=== PATIENT | female | born 1980 | race Caucasian/White ===

== ENCOUNTER 2024-07-07 14:14 | Emergency (ER) | payer OTHER ==
--- OUTSIDE RECORDS SUMMARY | 2024-07-07 14:17 | XMS REPORT | Continuity of Care Document ---
Author Name Unknown Address [address] [place] [address] Organization [facility] Address [address] [place] [address] Care Team Providers Care Physician Recruiter Name Role Phone Hilton Farah Attending Clinician Unavailable DR ANGEL NICHOLSON Attending Clinician Unavailable DR ANGEL NICHOLSON Attending Clinician Unavailable DR ANGEL NICHOLSON Admitting Clinician Unavailable Iveth Smith Admitting Clinician Radha vailable Payers Payer Name Policy Type Policy Number Effective Date Expirati on Date Source [id number] 1958 00:00:00 [id number] 1958 00:00:00 Problems Condition Name Condition Details Condition Category Status Onset Date Resolution Date Last Treatment Date Treating Clinician Comments Source Foot pain Foot pain Disease Active 11-12 00:00: 00 [facility] Allergies, Adverse Reactions, Alerts Allergy Name Allergy Type Status Severity Reaction(s) Onset Date Inactive Date Treating Clinician Comments Source No Known Allergie s DA Active U 07-02 00:00: 00 [facility] No Active Allergie s Propensi ty to adverse reaction s to drug Active 11-24 00:00: 00 [facility] No Known Contrast Allergie s DA Active U 01-16 00:00: 00 [facility] No Known Drug Allergie s DA Active U 01-16 00:00: 00 [facility] No Known Food Allergie s DA Active U 01-16 00:00: 00 [facility] No Known Other Allergie s DA Active U 01-16 00:00: 00 [facility] No Known Drug Intolera nces DA Active U 05-14 00:00: 00 [facility] No Known Drug Allergie s DA Active [facility] Family History Family Member Diagnosis Comments Start Date Stop Date Sourc e Natural mother Diabetes [place] [facility] Social History Social Habit Start Date Stop Date Quantity Comments Source Sexual orientation H [facility] History of tobacco use Cigarette Smoker [facility] Alcoholic beverage intake 2021-08-18 00:00:00 2021-08-18 00:00:00 Current non-drinker of alcohol (finding) [facility] History of Social function 2021-08-18 00:00:00 2021-08-18 00:00:00 [facility] Tobacco use and exposure 2013-11-24 00:00:00 2013-11-24 00:00:00 Smokeless tobacco non-user [facility] Sex assigned at 1980 00:00:00 1980 00:00:00 [facility] Smoking Status Start Date Stop Date Source Smokes tobacco daily 2013-11-24 00:00:00 [facility] Medications Ordered Medication Name Filled Medication Name Start Date Stop Date Current Medication? Ordering Clinician Indication Dosage Frequency Signature (SIG) Comments Components Source ibuprofen (MOTRIN) 800 mg tablet 11-13 00:00: 00 Yes Foot pain 800mg Take 1 tablet by mouth every 8 hours as needed for Pain. [facility] HYDROcodone -acetaminop hen (VICODIN) 5-500 mg per tablet 2009-04 00:00: 00 Yes Boil 1{tbl} Take 1 Tab by mouth every 6 hours as needed for Pain for 10 doses. [facility] Immunizations Ordered Immunization Name Filled Immunization Name Date Status Comments Source Pfizer COVID-19 Vaccine Pfizer COVID-19 Vaccine 2020-12-14 00:00:00 Completed Pfizer COVID-19 Vaccine Pfizer COVID-19 Vaccine 2020-11-23 00:00:00 Completed Encounters Start Date/Time End Date/Time Encounter Type Admission Type Attending Clinicians Care Facility Care Department Encounter ID Source 2023-07-27 16:59:00 Inpatient Emy [facility] [id number] [facility] 2024-07-02 15:29:00 2024-07-02 18:02:00 Emergency EM Hilton Farah [facility] [id number] [facility] 2024 13:21:23 2024 13:21:23 Outpatient SFA [facility] [id number] Wilfrido Foreman 2023-07-27 16:59:00 2023-07-27 18:08:00 Outpatient ANGEL GENAO [facility] [id number] [facility] 2020-12-14 00:00:00 2020-12-14 00:00:00 Outpatient [facility] [id number] [facility] 2020-11-23 00:00:00 2020-11-23 00:00:00 Outpatient [facility] [id number] [facility] Results Test Description Test Time Test Comments Results Result Co mments Source XR CHEST 1 VIEW *OW* 2023-07-27 17:59:[facility] 1980 Sex: F *EXAMINATION:XR CHEST 1 VIEW *OW*CLINICAL INDICATION:Female, 43 years year old with COUGH, UNSPECIFIED;CoughCOM PARISON: None.FINDINGS:Single view(s) of the chest submitted.Support Devices: None.Heart: Cardiac silhouette is normal in size.Mediastinum: Mediastinal contours are within normal limits for age.Lungs: The lungs are hyperinflated. There is no focal consolidation or significant congestive change. Pleura: No pleural effusion is identified. Limited assessment for pneumothorax due to technical limitations.Bones: No acute osseous abnormality. IMPRESSION:Pulmonary hyperinflation. No focal consolidation or significant congestive change.Electronicall y signed by: Korin Rodriges MD 07/27/2023 05:59 PM CDT TSH, THIRD [id number] 06:56:23* Test Item Value Reference Range Interpretation Comme nts TSH, THIRD GENERATION (test code = 2821) 2.250 UIU/ML 0.400-4.100 CBC W/AUTO DIFF WITH [id number] 06:19:16* Test Item Value Reference Range Interpretation Comme nts WBC (test code = 1001) 9.4 K/UL 3.5-11.0 RBC (test code = 1002) 4.48 M/UL 3.80-5.40 HEMOGLOBIN (test code = 1003) 13.5 G/DL 11.5-15.5 HEMATOCRIT (test code = 1004) 38.4 % 34.0-45.0 MCV (test code = 1005) 85.7 fL 80.0-99.0 MCH (test code = 1006) 30.1 PG 25.0-33.0 MCHC (test code = 1007) 35.2 G/DL 31.0-36.0 RDW (test code = 1038) 12.3 % 11.5-15.0 NEUTROPHILS (test code = 1008) 61.4 % LYMPHOCYTES (test code = 1010) 24.6 % MONOCYTES (test code = 1011) 6.9 % EOSINOPHILS (test code = 1012) 6.3 % BASOPHILS (test code = 1013) 0.6 % IMMATURE GRANULOCYTES (test code = 1036) 0.2 % NUCLEATED RBCS (test code = 1065) 0.0 /100 WBC'S See_Comment [Automated Rohati Systemsa ge] The system which generated this result transmitted reference range: 0.0. The reference range was not used to interpret this result as normal/abnormal. PLATELET COUNT (test code = 1015) 307 K/UL 130-400 ABSOLUTE NEUTROPHILS (test code = 1066) 5.75 K/UL 1.50-7.50 ABSOLUTE LYMPHOCYTES (test code = 1067) 2.31 K/UL 1.00-4.00 ABSOLUTE MONOCYTES (test code = 1068) 0.65 K/UL 0.20-1.00 ABSOLUTE EOSINOPHILS (test code = 1040) 0.59 K/UL 0.00-0.50 H ABSOLUTE BASOPHILS (test code = 1069) 0.06 K/UL 0.00-0.20 ABS IMMATURE GRANULOCYTES (test code = 1020) 0.02 K/UL 0.00-0.10 ABS NUCLEATED RBCS (test code = 74490) 0.00 K/UL 0.00-0.11 COMPREHENSIVE METABOLIC [id number] 05:52:52* Test Item Value Reference Range Interpretation Comme nts GLUCOSE (test code = 2217) 101 MG/DL 70-99 H BUN (test code = 2207) 14 MG/DL 6-20 CREATININE (test code = 2214) 0.82 MG/DL 0.60-1.30 eGFR (2020 CKD-EPI) (test code = 00329) 93 ML/MIN/1.73 >60 CALC BUN/CREAT (test code = 2235) 17 RATIO 6-28 SODIUM (test code = 223) 141 MEQ/L 133-146 POTASSIUM (test code = 2228) 4.3 MEQ/L 3.5-5.4 CHLORIDE (test code = 2215) 104 MEQ/L 95-107 CARBON DIOXIDE (test code = 2206) 25 MEQ/L 19-31 CALCIUM (test code = 2209) 9.2 MG/DL 8.5-10.5 PROTEIN, TOTAL (test code = 222) 6.6 G/DL 6.1-8.3 ALBUMIN (test code = 2201) 4.4 G/DL 3.5-5.2 CALC GLOBULIN (test code = 2240) 2.2 G/DL 1.9-3.7 CALC A/G RATIO (test code = 2234) 2.0 RATIO 1.0-2.6 BILIRUBIN, TOTAL (test code = 220) 0.3 MG/DL See_Comment [Automated me ssage] The system which generated this result transmitted reference range: <=1.2. The reference range was not used to interpret this result as normal/abnormal. ALKALINE PHOSPHATASE (test code = 4) 58 U/L 40-112 AST (test code = 2218) 15 U/L 9-40 ALT (test code = 2219) 17 U/L 5-40 LIPID [id number] 05:52:52* Test Item Value Reference Range Interpretation Comme nts CHOLESTEROL (test code = 2210) 168 MG/DL <200 TRIGLYCERIDES (test code = 2232) 101 MG/DL <150 HDL CHOLESTEROL (test code = 2220) 49 MG/DL >39 CALC LDL CHOL (test code = 2237) 100 MG/DL <100 H NOTE: CALCULATED LDL IS BASED ON SIDDHARTH-SELLERS METHOD WHICHINCLUDES ADJUSTABLE TRIGLYCERIDE:VLDL CHOLESTEROL RATIO.THIS FACTOR VARIES BY MEASURED TRIGLYCERIDE AND NON-HDLCHOLESTEROL CONCENTRATIONS WITH INCREASED CALCULATED LDL SEENIN HIGHER TRIGLYCERIDE OR LOWER NON-HDL SPECIMENS. FOR MOREINFORMATION, SEE CLIENT ANNOUNCEMENT AT [email or web address] [email or web address] RATIO LDL/HDL (test code = 2238) 2.04 RATIO <3.22 UNLESS OTHERW ISE INDICATED, ALL TESTING PERFORMED [facility] [employer] [address] [place] [address] PLANT OPERATOR/SHIFT SUPERVISOR: AIME PARISH M.D. CLIA NUMBER [id number] [facility] [place]. [id number] Notes Date/Time Note Provider Source 2024-07-02 16:35:00 [facility] ([facility] EMERGENCY PROVIDER REPORT REPORT#:[id number] REPORT STATUS: Signed DATE:07/02/24 TIME: 1635 PATIENT: MICHAEL DAS UNIT #: [id number] ROOM/BED: : 81 AGE: 44 SEX: F PCP PHYS: Iveth Smith MD SERVICE AUTHOR: Hilton Farah MD REP SRV REP SRV TM: 1635 * ALL edits or amendments must be made on the electronic/computer document * HPI-General Illness General Initial Greet Date/Time 07/02/24 1532 Presentation Chief Complaint High blood pressure Hx Obtained From Patient Sudden in Onset? No Onset Occurred Today Symptom Duration Waxes and wanes Progression since Onset Waxes and wanes Pain/Sev: Onset Mild Pain/Sev: Current Mild Exacerbated by Nothing Relieved by Nothing Review of Systems ROS Statements All systems rev neg except as marked. Review of Systems Constitutional Denies: Fever, Malaise. Respiratory Denies: Hemoptysis, Parox nocturnal dyspnea. Past Medical History - Adult Stated Complaint HTN Allergies Coded Allergies: No Known Allergies (07/02/24) Pt reports no significant: Past medical history, Past surgical history Smoking status for patients 13 years old or older: Current some day smoker Physical Exam Vital Signs Vital Signs First Documented: Result Date Time Pulse Ox 98 07/02 1529 B/P 175/119 07/02 1529 O2 Delivery Room air 07/02 1529 Temp 36.8 07/02 1529 Pulse 78 07/02 1529 Resp 18 07/02 1529 B/P Mean 150 07/02 1639 Last Documented: Result Date Time Pulse Ox 99 07/02 1700 B/P 168/97 07/02 1700 B/P Mean 127 07/02 1700 Pulse 61 07/02 1700 O2 Delivery Room air 07/02 1529 Temp 36.8 07/02 1529 Resp 18 07/02 1529 Review of Vital Signs Reviewed Basic Physical Exam Basic PE GEN: Well appearing/NAD, HEAD: Atraumatic/NC, EYES: PERRL, conj clear, ENT: Membranes moist, NECK: Supple, RESP: No resp distress, CV: Reg rate rhythm, ABD: Soft/non-tender, EXT: No gross abnormality, SKIN: No rashes, warm/ dry, NEURO: alert oriented, NEURO: gross movement NL, PSYCH: NL thought content Re-Evaluation MDM ED Course Medication(s) Ordered Medication(s) Ordered: Cardiovascular Drugs Sig/Tamanna Start time Last Medication Dose Route Stop Time Status Admin Clonidine HCl 0.2 MG X1ED STA 07/02 1550 DC 07/02 PO 07/02 1551 1640 Patient Discharge Departure Vital Signs/Condition Vital Signs First Documented: Result Date Time Pulse Ox 98 07/02 1529 B/P 175/119 07/02 1529 O2 Delivery Room air 07/02 1529 Temp 36.8 07/02 1529 Pulse 78 07/02 1529 Resp 18 07/02 1529 B/P Mean 150 07/02 1639 Last Documented: Result Date Time Pulse Ox 99 07/02 1700 B/P 168/97 07/02 1700 B/P Mean 127 07/02 1700 Pulse 61 03/13 1700 O2 Delivery Room air 07/02 1529 Temp 36.8 07/02 1529 Resp 18 07/02 1529 All vital signs available at the time of this entry have been reviewed. Clinical Impression Clinical Impression Primary Impression: Uncontrolled hypertension Disposition Decision Discharge )( Discharged to Home Yes )( Time 1636 )( Date 07/02/24 Discharge/Care Plan (Auto) Prescriptions Current Visit Scripts LISINOPRIL (ZESTRIL) 10 MG PO DAILY LISINOPRIL (ZESTRIL) 10 MG PO DAILY #30 TABS LISINOPRIL (ZESTRIL) 10 MG PO DAILY LISINOPRIL (ZESTRIL) 10 MG PO DAILY #30 TABS Patient Instructions ED Hypertension, Established Referrals Provider Referral: Joseph Tillman MD Address: [address] [place] [address] at 1754 RPT #:[id number] END OF REPORT [facility]
--- NOTE | 2024-07-07 15:20 | RAD REPORT ---
EXAM: CT brain without contrast HISTORY: DIZZINESS COMPARISON: None TECHNIQUE: Multiple contiguous axial images were obtained and a CT of the brain without contrast. Sag ittal and coronal reformats were performed. One or more of the following dose reduction techniques were used: Automated exposure control, adjust ment of the mA and/or kV according to patient size, and/or iterative reconstruction. FINDINGS: No evidence of hydrocephalus, intracranial hemorrhage, or extra-axial fluid collection. The brain is normal in morphology. No evidence of midline shift or areas of brain edema. The calvarium is intact. The visualized paranasal sinuses and mastoid air cells are essentially clear . IMPRESSION: No evidence of acute intracranial abnormality.
[2024-07-07] MEDS ORDERED: cloNIDine HCL 0.1 MG TAB ONE (15:34)
[2024-07-07 16:18] LABS: Absolute Basophils 0.1 K/uL (0-0.5); Absolute Eosinophils 0.4 K/uL (0-0.5); Absolute Monocytes 0.6 K/uL (0.1-1.3); Absolute Neutrophil 6.2 K/uL (1.8-8.0); Eosinophils % 3.8 % (0-4.4); Hematocrit 43.2 % (36.0-45.0); Hemoglobin 14.7 g/dL (12.0-15.0); Lymphocytes % 21.9 % (15.3-44.8); MCH 28.9 pg (27.0-35.0); MCHC 33.9 g/dL (32.0-36.0); MCV 85.1 fL (80-100); MPV 7.3 fL (7.6-11.3); Monocytes % 6.7 % (3.3-12.3); Neutrophils % 66.6 % (41.7-73.7); Nucleated Red Blood Cells % 0.1 % (0-0); Platelets 362 thou/uL (152-406); RBC Red Blood Cell Count 5.08 M/uL (3.86-4.86); Red Cell Distribution Width 14.2 % (12.1-15.2)
[2024-07-07 16:35] LABS: Anion Gap 7.8 mEq/L (5.0-15.0); Potassium 3.8 mEq/L (3.5-5.1); Troponin High Sensitivity 10.4 pg/mL (<58.9)
--- NOTE | 2024-07-07 17:00 | RAD REPORT ---
EXAMINATION: ONE VIEW CHEST XR CLINICAL INDICATION: CHEST PAIN TECHNIQUE: Frontal chest projection is submitted. Examination is limited by patient positioning and t echnique. COMPARISON: No prior exam. FINDINGS: The lungs are well inflated and clear. The heart is upper limit of normal in size. No displaced fract ures identified. IMPRESSION: No acute intrathoracic abnormalities.
--- NOTE | 2024-07-07 17:14 | EDPHYS ---
Physician Documentation [facility] Name: Elizabeth Menendez Age: 44 yrs Sex: Female : 1980 Arrival Date: 07/07/2024 Time: 14:14 Bed 16 Private MD: ED Physician Miquel Osborne HPI: 07/07 15:04 This 44 yrs old Female presents to ER via Ambulatory with complaints of High Blood sb4 Pressure. 15:04 Blood pressure has been running high for about 2 weeks now. Was put on 10 mg of sb4 lisinopril daily, but states is not helping. Blood pressure has been consistently running 150+ systolic and 100+ diastolic. She reports dizziness and headache. States that she is currently residing at [facility] for drug rehabilitation. States that if her blood pressure is not under control, they will have to medically discharge her. She states that she is complaining of some chest pain and shortness of breath currently, but also just had an argument with her . Historical: - Allergies: 15:00 No Known Allergies; iw - Home Meds: 15:00 lisinopril 10 mg Oral tablet daily [Active]; iw - PMHx: 15:00 Hypertensive disorder; iw - Immunization history:: Adult Immunizations up to date. - Infectious Disease History:: Denies. - Social history:: Smoking status: unknown. ROS: 15:04 Constitutional: Negative for fever, chills, and weight loss, sb4 15:04 Cardiovascular: Positive for chest pain, 15:04 Respiratory: Positive for shortness of breath, 15:04 Neuro: Positive for dizziness, headache, 15:04 All other systems are negative, Exam: 15:05 Head/Face: Normocephalic, atraumatic. Eyes: Extra-ocular motions intact. Periorbital sb4 areas with no swelling, redness, or edema. ENT: Mucous membranes moist. Respiratory: No increased work of breathing, no retractions or nasal flaring. Abdomen/GI: Soft, non-tender, no distension. 15:05 Constitutional: The patient appears alert, awake, anxious, Crying 15:05 Cardiovascular: Rate: tachycardic, Rhythm: regular, 15:05 Skin: Appearance: flushing, noted on the face and chest, Vital Signs: 14:59 BP 194 / 100; Pulse 100; Resp 19; Temp 98.7; Pulse Ox 100% on R/A; iw 16:10 BP 153 / 107; Pulse 65; Resp 16 S; Pulse Ox 100% on R/A; kc6 16:57 BP 139 / 95; Pulse 59; Resp 18 S; Pulse Ox 99% on R/A; kc6 MDM: 14:44 Medical Screening Exam initiated sb4 17:12 Data reviewed: vital signs, nurses notes, lab test result(s), EKG, radiologic studies, sb4 and as a result, I will discharge patient. Counseling: I had a detailed discussion with the patient and/or guardian regarding the historical points, exam findings, and any diagnostic results supporting the discharge/admit diagnosis, the presence of at least one elevated blood pressure reading (>120/80) during this emergency department visit, lab results, radiology results, the need for outpatient follow up, for definitive care, to return to the emergency department if symptoms worsen or persist or if there are any questions or concerns that arise at home. 07/07 15:02 Order name: Basic Metabolic Panel; Complete Time: 16:38 sb4 07/07 15:02 Order name: CBC with Diff; Complete Time: 16:23 sb4 07/07 15:02 Order name: Troponin HS; Complete Time: 16:38 sb4 07/07 15:02 Order name: XRAY Chest (1 view); Complete Time: 17:04 sb4 07/07 15:03 Order name: Head Brain Wo Cont CT; Complete Time: 15:23 sb4 07/07 15:02 Order name: EKG; Complete Time: 15:03 sb4 07/07 15:02 Order name: Cardiac monitoring; Complete Time: 15:59 sb4 07/07 15:02 Order name: EKG - Nurse/Tech; Complete Time: 15:59 sb4 07/07 15:02 Order name: IV Saline Lock; Complete Time: 16:10 sb4 07/07 15:02 Order name: Labs collected and sent; Complete Time: 16:10 sb4 07/07 15:02 Order name: O2 Per Protocol; Complete Time: 15:16 sb4 07/07 15:02 Order name: O2 Sat Monitoring; Complete Time: 15:16 sb4 EC:15 Rate is 58 beats/min. Rhythm is regular, Sinus bradycardia. KS interval is normal at sb4 156 msec. QRS interval is normal at 92 msec. QT interval is normal at 438 msec. No Q waves. T waves are Normal. No ST changes noted. Clinical impression: Sinus bradycardia. Interpreted by me. Reviewed by me. Administered Medications: 15:59 Drug: cloNIDine PO 0.2 mg PO once Route: PO; kc6 16:58 Follow up: Response: No adverse reaction; Blood pressure is lowered kc6 Disposition: 18:55 I was immediately available on-site in the Emergency Department for consultation in the ms3 care of the patient. Disposition Summary: 07/07/24 17:13 Discharge Ordered Notes: Location: Home sb4 Problem: new sb4 Symptoms: have improved sb4 Condition: Stable sb4 Diagnosis - Essential (primary) hypertension sb4 Followup: sb4 - With: Emergency Department - When: As needed - Reason: If symptoms return, Worsening of condition Discharge Instructions: - Discharge Summary Sheet sb4 - Hypertension, Adult, [id number]-rk-[id number] sb4 Forms: - Patient Portal Instructions sb4 - Leadership Thank You Letter sb4 Prescriptions: - amlodipine 5 mg Oral tablet - take 1 tablet ORAL route daily; 30 tablet; Refills: 0, Product Selection sb4 Permitted Signatures: Dispatcher [employer] Roxanne Gomez RN RN iw Miquel Osborne DO DO ms3 Christina Perez RN RN kc6 Phoebe Connor PA-C PA-C sb4 Corrections: (The following items were deleted from the chart) 15:03 15:03 Head Brain Wo Cont+CT.RAD.BRZ ordered. EDMS EDMS
--- NOTE | 2024-07-07 17:14 | ER ---
Nurse's Notes [facility] Name: Elizabeth Menendez Age: 44 yrs Sex: Female : 1980 Arrival Date: 07/07/2024 Time: 14:14 Bed 16 Private MD: Diagnosis: Essential (primary) hypertension Presentation: 07/07 14:59 Chief complaint: Patient states: my BP is high, they put me on lisinopril last Saturday. iw Coronavirus screen: At this time, the client does not indicate any symptoms associated with coronavirus-19. Ebola Screen: No symptoms or risks identified at this time. Initial Sepsis Screen: Does the patient meet any 2 criteria? No. Patient's initial sepsis screen is negative. Does the patient have a suspected source of infection? No. Patient's initial sepsis screen is negative. Risk Assessment: Do you want to hurt yourself or someone else? Patient reports no desire to harm self or others. Onset of symptoms was June 30, 2024. 14:59 Method Of Arrival: Ambulatory iw 14:59 Acuity: ARANZA 3 iw Historical: - Allergies: 15:00 No Known Allergies; iw - Home Meds: 15:00 lisinopril 10 mg Oral tablet daily [Active]; iw - PMHx: 15:00 Hypertensive disorder; iw - Immunization history:: Adult Immunizations up to date. - Infectious Disease History:: Denies. - Social history:: Smoking status: unknown. Screenin:15 [facility] ED Fall Risk Assessment (Adult) History of falling in the last 3 months, kc6 including since admission No falls in past 3 months (0 pts) Confusion or Disorientation No (0 pts) Intoxicated or Sedated No (0 pts) Impaired Gait No (0 pts) Mobility Assist Device Used No (0 pt) Altered Elimination No (0 pt) Score/Fall Risk Level 0 - 2 = Low Risk Oriented to surroundings, Maintained a safe environment, Educated pt \T\ family on fall prevention, incl call for assistance when getting out of bed. 16:16 Abuse screen: Denies threats or abuse. Denies injuries from another. Nutritional kc6 screening: No deficits noted. Tuberculosis screening: No symptoms or risk factors identified. Assessment: 16:15 General: Appears in no apparent distress. comfortable, well groomed, well developed, kc6 Behavior is cooperative, anxious, crying. Pain: Complains of pain in chest Quality of pain is described as dull, throbbing. Neuro: Level of Consciousness is awake, alert, obeys commands, Oriented to person, place, time, situation, Appropriate for age Reports blurred vision headache. Cardiovascular: Capillary refill < 3 seconds. Respiratory: Airway is patent Trachea midline Respiratory effort is even, unlabored, Respiratory pattern is regular, symmetrical. GI: Reports nausea, Patient currently denies abdominal pain, diarrhea, vomiting. : No signs and/or symptoms were reported regarding the genitourinary system. EENT: No signs and/or symptoms were reported regarding the EENT system. Derm: No signs and/or symptoms reported regarding the dermatologic system. Skin is intact, is healthy with good turgor, Skin is pink, warm \T\ dry. Musculoskeletal: No signs and/or symptoms reported regarding the musculoskeletal system. Circulation, motion, and sensation intact. Range of motion: intact in all extremities. Vital Signs: 14:59 BP 194 / 100; Pulse 100; Resp 19; Temp 98.7; Pulse Ox 100% on R/A; iw 16:10 BP 153 / 107; Pulse 65; Resp 16 S; Pulse Ox 100% on R/A; kc6 16:57 BP 139 / 95; Pulse 59; Resp 18 S; Pulse Ox 99% on R/A; kc6 ED Course: 14:18 Patient arrived in ED. cj3 14:42 Phoebe Connor PA-C is PHCP. sb4 14:42 Miquel Osborne DO is Attending Physician. sb4 15:00 Triage completed. iw 15:14 Head Brain Wo Cont CT In Process Unspecified. EDMS 15:15 Christina Perez, RN is Primary Nurse. kc6 16:10 Missed attempt(s): 22 gauge in right wrist. Inserted saline lock: 22 gauge in left [facility] antecubital area, using aseptic technique. Blood collected. Flushed with 10 mL NS. 16:15 Patient maintains SpO2 saturation greater than 95% on room air. kc6 16:15 Patient has correct armband on for positive identification. Bed in low position. Call [facility] light in reach. Side rails up X 1. monitoring engineer on. Pulse ox on. NIBP on. Door closed. Noise minimized. Lights dimmed. Warm blanket given. Pillow given. Verbal reassurance given. 16:17 Arm band placed on. kc6 16:53 XRAY Chest (1 view) In Process Unspecified. EDMS 17:45 No provider procedures requiring assistance completed. IV discontinued, intact, kc6 bleeding controlled, No redness/swelling at site. Pressure dressing applied. Administered Medications: 15:59 Drug: cloNIDine PO 0.2 mg PO once Route: PO; kc6 16:58 Follow up: Response: No adverse reaction; Blood pressure is lowered kc6 Medication: 17:46 VIS not applicable for this client. kc6 Outcome: 17:13 Discharge ordered by MD. nevarez 17:45 Patient left the ED. kc6 17:46 Discharged to Rehab Facility kc6 17:46 Condition: improved 17:46 Discharge instructions given to patient, Instructed on discharge instructions, follow up and referral plans. medication usage, Demonstrated understanding of instructions, follow-up care, medications, Prescriptions given X 1, Signatures: Dispatcher [employer] Roxanne Gomez, RN Christina Boyd RN RN kc6 Phoebe Connor, PA-C PA-C Tahira Gee cj3
[2024-07-07 23:08] VITALS: TEMP 98.7
[2024-07-07 23:18] VITALS: BP 139/95; O2SAT 99
--- NOTE | 2024-07-08 12:29 | EKG ---
Test Date: 2024-07-07 Test Time: 15:45:39 Principal Examiner: HOWARD MEASUREMENT RESULTS: Intervals: Rate: 58 AL: 156 QRSD: 92 QT: 438 QTc: 429 Lucas: P: 75 AL: 156 QRS: 86 T: 67 INTERPRETIVE STATEMENTS: Sinus bradycardia Possible Anterior infarct, age undetermined Abnormal ECG No previous ECG available for comparison Electronically Signed On 07-08-24 12:25:36 CDT by Isaiah Sparks
== END 2024-07-07 17:45 | disposition home or self-care (01) ==
LOC: ER 14:14
DX: I10 Essential (primary) hypertension (principal); R51.9 Headache, unspecified
CPT/HCPCS: 36415; 70450; 71045; 80048; 84484; 85025; 93005

== ENCOUNTER 2024-07-10 19:11 | Emergency (ER) | payer OTHER ==
--- OUTSIDE RECORDS SUMMARY | 2024-07-10 19:14 | XMS REPORT | Continuity of Care Document ---
Author Name Unknown Address [address] [place] [address] [facility] Address [address] [place] [address] Care Team Providers Care Dietitian Consultant Name Role Phone Hilton Farah Attending Clinician Unavailable DR ANGEL NICHOLSON Attending Clinician Unavailable DR ANGEL NICHOLSON Attending Clinician Unavailable DR ANGEL NICHOLSON Admitting Clinician Unavailable Iveth Smith Admitting Clinician Radha vailable Payers Payer Name Policy Type Policy Number Effective Date Expirati on Date Source [id number] 1958 00:00:00 [id number] 1958 00:00:00 Problems Condition Name Condition Details Condition Category Status Onset Date Resolution Date Last Treatment Date Treating Clinician Comments Source Foot pain Foot pain Disease Active 11-12 00:00: 00 [facility] Allergies, Adverse Reactions, Alerts Allergy Name Allergy Type Status Severity Reaction(s) Onset Date Inactive Date Treating Clinician Comments Source No Known Allergie s DA Active U 07-02 00:00: 00 [facility] No Active Allergie s Propensi ty to adverse reaction s to drug Active 11-24 00:00: 00 [facility] No Known Contrast Allergie s DA Active U 01-16 00:00: 00 [facility] No Known Drug Allergie s DA Active U 01-16 00:00: 00 [facility] No Known Food Allergie s DA Active U 01-16 00:00: 00 [facility] No Known Other Allergie s DA Active U 01-16 00:00: 00 [facility] No Known Drug Intolera nces DA Active U 05-14 00:00: 00 [facility] No Known Drug Allergie s DA Active [facility] Family History Family Member Diagnosis Comments Start Date Stop Date Sourc e Natural mother [facility] Social History Social Habit Start Date Stop Date Quantity Comments Source Sexual orientation [facility] History of tobacco use Cigarette Smoker [facility] Alcoholic beverage intake 2021-08-18 00:00:00 2021-08-18 00:00:00 Current non-drinker of alcohol (finding) [facility] History of Social function 2021-08-18 00:00:00 2021-08-18 00:00:00 [facility] Tobacco use and exposure 2013-11-24 00:00:00 2013-11-24 00:00:00 Smokeless tobacco non-user [facility] Sex assigned at 1980 00:00:00 1980 00:00:00 [facility] Smoking Status Start Date Stop Date Source Smokes tobacco daily 2013-11-24 00:00:00 [facility] Medications Ordered Medication Name Filled Medication Name Start Date Stop Date Current Medication? Ordering Clinician Indication Dosage Frequency Signature (SIG) Comments Components Source ibuprofen (MOTRIN) 800 mg tablet 11-13 00:00: 00 Yes Foot pain 800mg Take 1 tablet by mouth every 8 hours as needed for Pain. [facility] HYDROcodone -acetaminop hen (VICODIN) 5-500 mg per tablet 2009-04 00:00: 00 Yes Boil 1{tbl} Take 1 Tab by mouth every 6 hours as needed for Pain for 10 doses. [facility] Immunizations Ordered Immunization Name Filled Immunization Name Date Status Comments Source Pfizer COVID-19 Vaccine Pfizer COVID-19 Vaccine 2020-12-14 00:00:00 Completed Pfizer COVID-19 Vaccine Pfizer COVID-19 Vaccine 2020-11-23 00:00:00 Completed Encounters Start Date/Time End Date/Time Encounter Type Admission Type Attending Clinicians Care Facility Care Department Encounter ID Source 2023-07-27 16:59:00 Inpatient [facility] [id number] [facility] 2024-07-02 15:29:00 2024-07-02 18:02:00 Emergency EM Hilton Farha [facility] [id number] [facility] 2024 13:21:23 2024 13:21:23 Outpatient S[facility] [id number] Wilfrido Foreman 2023-07-27 16:59:00 2023-07-27 18:08:00 Outpatient ANGEL GENAO [facility] [id number] [facility] 2020-12-14 00:00:00 2020-12-14 00:00:00 Outpatient [facility] [id number] [facility] 2020-11-23 00:00:00 2020-11-23 00:00:00 Outpatient [facility] [id number] [facility] Results Test Description Test Time Test Comments Results Result Co mments Source XR CHEST 1 VIEW *OW* [facility]23-[facility]27 [facility] 1980 Sex: F *EXAMINATION:XR [...] MD 07/27/2023 05:59 PM CDT TSH, THIRD [id number] 06:56:23* Test Item Value Reference Range Interpretation Comme nts TSH, THIRD GENERATION (test code = 2821) 2.250 UIU/ML 0.400-4.100 CBC W/AUTO DIFF WITH [id number] 06:19:16* Test Item Value Reference Range Interpretation [...] = 1065) 0.0 /100 WBC'S See_Comment [Automated Next Glass[employer] ge] The system which generated this result [...] 0.00-0.10 ABS NUCLEATED RBCS (test code = 69777) 0.00 K/UL 0.00-0.11 COMPREHENSIVE METABOLIC [id number] 05:52:52* Test Item Value Reference Range Interpretation Comme nts GLUCOSE (test code = 221) 101 MG/DL 70-99 H BUN (test code = 2207) 14 MG/DL 6-20 CREATININE (test code = 2214) 0.82 MG/DL 0.60-1.30 eGFR (2020 CKD-EPI) (test code = 78574) 93 ML/MIN/1.73 >60 CALC BUN/CREAT (test code = 2235) 17 RATIO 6-28 SODIUM (test code = 223) 141 MEQ/L 133-146 POTASSIUM (test code = 2228) 4.3 MEQ/L 3.5-5.4 CHLORIDE (test code = 2215) 104 MEQ/L 95-107 CARBON DIOXIDE (test code = 2206) 25 MEQ/L 19-31 CALCIUM (test code = 2209) 9.2 MG/DL 8.5-10.5 PROTEIN, TOTAL (test code = 2228) 6.6 G/DL 6.1-8.3 ALBUMIN (test code = 220) 4.4 G/DL 3.5-5.2 CALC GLOBULIN (test code = 2240) 2.2 G/DL 1.9-3.7 CALC A/G RATIO (test code = 2234) 2.0 RATIO 1.0-2.6 BILIRUBIN, TOTAL (test code = 2206) 0.3 MG/DL See_Comment [Automated me ssage] The system which generated this result transmitted reference range: <=1.2. The reference range was not used to interpret this result as normal/abnormal. ALKALINE PHOSPHATASE (test code = 2203) 58 U/L 40-112 AST (test code = 2218) 15 U/L 9-40 ALT (test code = 2219) 17 U/L 5-40 LIPID [id number] 05:52:52* Test Item Value Reference Range Interpretation [...] SPECIMENS. FOR MOREINFORMATION, SEE CLIENT ANNOUNCEMENT AT [email or web address] RISK RATIO LDL/HDL (test code = 2238) 2.04 RATIO <3.22 UNLESS OTHERW ISE INDICATED, ALL TESTING PERFORMED ATCLINICAL PATHOLOGY [employer] [address] [place] [address] LOIN TRIMMER: AIME PARISH M.D. CLIA NUMBER [id number] [facility] [place] [id number] Notes Date/Time Note Provider Source 2024-07-02 16:35:00 [facility] ([facility] EMERGENCY PROVIDER REPORT REPORT#:[id number] REPORT STATUS: Signed DATE:07/02/24 TIME: 163 PATIENT: MICHAEL DAS UNIT #: [id number] ROOM/BED: : 81 AGE: 44 SEX: F [...] Referrals Provider Referral: Joseph Tillman MD Address: [facility] [place] [address] at [address] RPT #:[id number] END OF REPORT [facility]
[2024-07-10 20:40] LABS: Absolute Basophils 0.2 K/uL (0-0.5); Absolute Eosinophils 0.6 K/uL (0-0.5); Absolute Lymphocytes (CBC) 3.3 K/uL (0.7-4.9); Absolute Monocytes 0.9 K/uL (0.1-1.3); Absolute Neutrophil 7.8 K/uL (1.8-8.0); Basophils % 1.4 % (0-1.3); Eosinophils % 4.4 % (0-4.4); Hematocrit 43.9 % (36.0-45.0); Hemoglobin 14.6 g/dL (12.0-15.0); Lymphocytes % 25.8 % (15.3-44.8); MCH 28.5 pg (27.0-35.0); MCHC 33.3 g/dL (32.0-36.0); MCV 85.4 fL (80-100); MPV 7.7 fL (7.6-11.3); Monocytes % 7.2 % (3.3-12.3); Neutrophils % 61.2 % (41.7-73.7); Platelets 390 thou/uL (152-406); RBC Red Blood Cell Count 5.14 M/uL (3.86-4.86); Red Cell Distribution Width 14.2 % (12.1-15.2)
[2024-07-10 21:00] LABS: ALT/SGPT 23 U/L (13-56); AST/SGOT 16 U/L (15-37); Albumin 3.9 g/dL (3.4-5.0); Alkaline Phosphatase 81 U/L (45-117); Anion Gap 7.7 mEq/L (5.0-15.0); BUN Blood Urea Nitrogen 15 mg/dL (7-18); Bicarbonate 29 mEq/L (21-32); Bilirubin Total 0.3 mg/dL (0.2-1.0); Globulin 4.1 g/dL (2.3-3.5); Glomerular Filtration Rate 86 ml/min (=/>90); Glucose Level 86 mg/dL (74-106); Magnesium 2.1 mg/dL (1.6-2.4); NT PRO-BNP 256 pg/mL (<125); Potassium 3.7 mEq/L (3.5-5.1); Sodium Level 136 mEq/L (136-145); Troponin High Sensitivity 11.8 pg/mL (<58.9)
[2024-07-10 21:10] LABS: Bilirubin Direct < 0.2 mg/dL (0-0.2); Bilirubin Indirect, Calculated 0.1 mg/dL (0.2-0.8)
[2024-07-10] MEDS ORDERED: KETOROLAC 30 MG/ML INJ ONE (21:17)
[2024-07-10] MEDS ORDERED: METOPROLOL TAR 50 MG TAB ONE (21:17)
[2024-07-10] MEDS ORDERED: FAMOTIDINE 20 MG/2 ML VIAL IV ONE (21:18)
[2024-07-10] MEDS ORDERED: DIPHENHYDRAMINE 50 MG/ML VIAL ONE (21:18)
[2024-07-10] MEDS ORDERED: NA CHLORIDE 0.9% 1,000 ML ONE (21:18)
[2024-07-10] MEDS ORDERED: METOCLOPRAMIDE 10 MG/2mL INJ ONE (21:18)
--- NOTE | 2024-07-10 21:18 | RAD REPORT ---
EXAM: CT brain without contrast HISTORY: HEADACHE COMPARISON: 07/07/2024 TECHNIQUE: Multiple contiguous axial images were obtained and a CT of the brain without contrast. Sag ittal and coronal reformats were performed. One or more of the following dose reduction techniques were used: Automated exposure control, adjust ment of the mA and/or kV according to patient size, and/or iterative reconstruction. FINDINGS: No evidence of hydrocephalus, intracranial hemorrhage, or extra-axial fluid collection. The brain is normal in morphology. No evidence of midline shift or areas of brain edema. The calvarium is intact. The visualized paranasal sinuses and mastoid air cells are essentially clear . IMPRESSION: No evidence of acute intracranial abnormality.
--- NOTE | 2024-07-10 21:26 | RAD REPORT ---
EXAMINATION: ONE VIEW CHEST XR CLINICAL INDICATION: CHEST PAIN TECHNIQUE: Frontal chest projection is submitted. Examination is limited by patient positioning and t echnique. COMPARISON: 07/07/2024 FINDINGS: The lungs are well inflated and clear. The heart is normal in size. No displaced fractures identified . IMPRESSION: No acute intrathoracic abnormalities.
--- NOTE | 2024-07-10 22:24 | EDPHYS ---
Physician Documentation [facility] Name: Elizabeth Menendez Age: 44 yrs Sex: Female : 1980 Arrival Date: 07/10/2024 Time: 19:11 Bed 7 Private MD: ED Physician Brenton Graf HPI: 07/10 21:19 This 44 yrs old Female presents to ER via EMS with complaints of Headache. julito 21:19 The patient complains of pain to the top of head and forehead. The patient describes [facility] the headache as aching. Onset: The symptoms/episode began/occurred this morning, today. Associated signs and symptoms: Pertinent positives: HEADACHE. Severity of symptoms: At its worst the pain was mild, in the emergency department the pain is unchanged. Headache History: The patient has had previous headaches and this one is similar to previous episodes. The patient has not experienced similar symptoms in the past. Historical: - Allergies: 19:33 No Known Allergies; ha1 - Home Meds: 19:33 amlodipine oral [Active]; ha1 - PMHx: 19:33 Hypertensive disorder; ha1 - PSHx: 19:33 section; ha1 - Immunization history:: Adult Immunizations up to date. - Infectious Disease History:: Denies. - Social history:: Smoking status: Patient reports the use of cigarette tobacco products, smokes one-half pack cigarettes per day. - Family history:: not pertinent. ROS: 21:19 Constitutional: Negative for fever, chills, and weight loss, Eyes: Negative for injury, julito pain, redness, and discharge, ENT: Negative for injury, pain, and discharge, Neck: Negative for injury, pain, and swelling, Cardiovascular: Negative for chest pain, palpitations, and edema, Respiratory: Negative for shortness of breath, cough, wheezing, and pleuritic chest pain, Abdomen/GI: Negative for abdominal pain, nausea, vomiting, diarrhea, and constipation, Back: Negative for injury and pain, : Negative for injury, bleeding, discharge, and swelling, MS/Extremity: Negative for injury and deformity, Psych: Negative for depression, anxiety, suicide ideation, homicidal ideation, and hallucinations, Allergy/Immunology: Negative for hives, rash, and allergies, Endocrine: Negative for neck swelling, polydipsia, polyuria, polyphagia, and marked weight changes, Hematologic/Lymphatic: Negative for swollen nodes, abnormal bleeding, and unusual bruising, 21:19 Skin: Positive for erythema, 21:19 Neuro: Positive for headache, Exam: 21:19 Constitutional: This is a well developed, well nourished patient who is awake, alert, julito and in no acute distress. Head/Face: Normocephalic, atraumatic. Eyes: Pupils equal round and reactive to light, extra-ocular motions intact. Lids and lashes normal. Conjunctiva and sclera are non-icteric and not injected. Cornea within normal limits. Periorbital areas with no swelling, redness, or edema. ENT: Nares patent. No nasal discharge, no septal abnormalities noted. Tympanic membranes are normal and external auditory canals are clear. Oropharynx with no redness, swelling, or masses, exudates, or evidence of obstruction, uvula midline. Mucous membranes moist. Neck: Trachea midline, no thyromegaly or masses palpated, and no cervical lymphadenopathy. Supple, full range of motion without nuchal rigidity, or vertebral point tenderness. No Meningismus. Chest/axilla: Normal chest wall appearance and motion. Nontender with no deformity. No lesions are appreciated. Cardiovascular: Regular rate and rhythm with a normal S1 and S2. No gallops, murmurs, or rubs. Normal PMI, no JVD. No pulse deficits. Respiratory: Lungs have equal breath sounds bilaterally, clear to auscultation and percussion. No rales, rhonchi or wheezes noted. No increased work of breathing, no retractions or nasal flaring. Abdomen/GI: Soft, non-tender, with normal bowel sounds. No distension or tympany. No guarding or rebound. No evidence of tenderness throughout. Back: No spinal tenderness. No costovertebral tenderness. Full range of motion. Female : Normal external genitalia. MS/ Extremity: Pulses equal, no cyanosis. Neurovascular intact. Full, normal range of motion., bilateral aka Neuro: Awake and alert, GCS 15, oriented to person, place, time, and situation. Cranial nerves II-XII grossly intact. Motor strength 5/5 in all extremities. Sensory grossly intact. Cerebellar exam normal. Normal gait. Psych: Awake, alert, with orientation to person, place and time. Behavior, mood, and affect are within normal limits. 21:19 Skin: abscess, not appreciated, cellulitis, is not appreciated, induration, is not appreciated, injury, is not appreciated, 21:19 Neuro: Orientation: is normal, appropriate for stated age, no acute changes, Mentation: is normal, appropriate for stated age, no acute changes, Memory: is normal, appropriate for stated age, no acute changes, Cranial nerves: grossly normal, is grossly normal based on the patient's age, no acute changes, Cerebellar function: is grossly normal, is grossly normal based on the patient's age, no acute changes, Motor: moves all fours, strength is normal, Sensation: is normal, Gait: not tested. Deep tendon reflexes are 2+ (normal) in the bilateral brachioradialis, bicep, tricep and patellar and Achilles tendons, Babinski testing is normal, seizure activity, is not displayed by the patient, 22:41 ECG was reviewed by the Attending Physician. [facility] Vital Signs: 19:27 BP 162 / 110; Pulse 72; Resp 16 S; Temp 98.2; Pulse Ox 98% on R/A; Weight 76.66 kg; ha1 Height 5 ft. 9 in. ; Pain 7/10; 20:20 BP 158 / 106; Pulse 69; Resp 17 S; Pulse Ox 99% on R/A; ha1 21:02 BP 200 / 110; Pulse 67; Resp 17 S; Pulse Ox 98% on R/A; ha1 22:07 BP 149 / 91; Pulse 72; Resp 17 S; Pulse Ox 99% on R/A; ha1 22:30 BP 139 / 100; Pulse 67; Resp 17 S; Pulse Ox 98% on R/A; ha1 23:02 BP 119 / 76; Pulse 67; Resp 17 S; Pulse Ox 98% on R/A; ha1 19:27 Body Mass Index 24.96 (76.66 kg, 175.26 cm) 1 19:27 Pain Scale: Adult ha NIH Stroke Scale Scores: 21:19 NIHSS Score: 0 julito [place] Coma Score: 21:24 Eye Response: spontaneous(4). Motor Response: obeys commands(6). Verbal Response: julito oriented(5). Total: 15. MDM: 20:12 Medical Screening Exam initiated [facility] 21:24 Differential diagnosis: cluster headache, hypoglycemia, hyponatremia, meningitis, julito migraine, tension headache. Data reviewed: vital signs, nurses notes, lab test result(s), EKG, radiologic studies, plain films. Consideration of Admission/Observation Escalation of care including admission/observation considered. I considered the following discharge prescriptions or medication management in the emergency department Medications were administered in the Emergency Department. See MAR. Independent interpretation of the following test(s) in the Emergency Department CT Scan: My interpretation is CT HEAD. Test considered but Not performed: Ultrasound NO 2 D ECHO. Historians other than the Patient: PT WELL INFORMED. Care significantly affected by the following chronic conditions: Hypertension. 07/10 20: Order name: Basic Metabolic Panel; Complete Time: : [facility] 07/10 20: Order name: CBC with Diff; Complete Time: : [facility] 07/10 20: Order name: LFT's; Complete Time: : [facility] 07/10 20: Order name: Magnesium; Complete Time: : [facility] 07/10 20:22 Order name: NT PRO-BNP; Complete Time: : [facility] 07/10 20:22 Order name: Troponin HS; Complete Time: : [facility] 07/10 20:22 Order name: XRAY Chest (1 view); Complete Time: 22:16 [facility] 07/10 20:22 Order name: CT Head Brain wo Cont; Complete Time: : [facility] 07/10 20:22 Order name: Cardiac monitoring; Complete Time: 20: [facility] 07/10 20:22 Order name: EKG - Nurse/Tech; Complete Time: 20:29 [facility] 07/10 20:22 Order name: IV Saline Lock; Complete Time: 20: [facility] 07/10 20:22 Order name: Labs collected and sent; Complete Time: 20: [facility] 07/10 20:22 Order name: O2 Per Protocol; Complete Time: 20: [facility] 07/10 20:22 Order name: O2 Sat Monitoring; Complete Time: 20: [facility] EC:41 Rate is 66 beats/min. Rhythm is regular. QRS [place] is Normal. RI interval is normal. QRS julito interval is normal. QT interval is normal. No Q waves. T waves are Normal. No ST changes noted. Clinical impression: Normal ECG and No evidence of ischemia. Interpreted by me. Reviewed by me. Administered Medications: 21:05 Drug: NS 0.9% IV 1000 ml IV at 1000 ml once; to be given as a bolus over 60 minutes ha1 Route: IV; Rate: 1000 ml; Site: left antecubital; 23:27 Follow up: Response: No adverse reaction; IV Status: Completed infusion ha1 21:05 Drug: Metoprolol PO 50 mg PO once Route: PO; ha1 21:50 Follow up: Response: No adverse reaction; Blood pressure is lowered ha1 21:07 Drug: metoCLOPramide IVP 10 mg IVP once; over 1 to 2 minutes Route: IVP; Site: left [facility] antecubital; 21:50 Follow up: Response: No adverse reaction; Marked relief of symptoms ha1 21:09 Drug: Ketorolac IVP 30 mg IVP once Route: IVP; Site: left antecubital; ha1 21:50 Follow up: Response: No adverse reaction; Pain is decreased ha1 21:10 Drug: Famotidine IVP 40 mg IVP once; dilute with 10 mL 0.9% NaCl; give over 2 minutes ha1 Route: IVP; Site: left antecubital; 21:50 Follow up: Response: No adverse reaction; Marked relief of symptoms ha1 21:11 Drug: diphenhydrAMINE IVP 37.5 mg IVP once Route: IVP; Site: left antecubital; ha1 21:50 Follow up: Response: No adverse reaction; Marked relief of symptoms ha1 22:45 Drug: Losartan-Hydrochlorothiazide PO 50 mg-12.5 mg 1 tablet PO once Route: PO; ha1 23:24 Follow up: Response: No adverse reaction; Blood pressure is lowered ha1 Disposition Summary: 07/10/24 22:24 Discharge Ordered Notes: Location: Home julito Problem: new julito Symptoms: have improved julito Condition: Stable julito Diagnosis - Headache julito - Adverse effect of unspecified drugs, medicaments and biological substances - [place] - Essential (primary) hypertension julito Followup: julito - With: Private Physician - When: 2 - 3 days - Reason: Recheck today's complaints, Continuance of care, Re-evaluation by your physician Followup: julito - With: Joesph Tucker MD - When: 2 - 3 days - Reason: Recheck today's complaints, Continuance of care, Re-evaluation by your physician Discharge Instructions: - Discharge Summary Sheet julito - Hypertension, Adult julito - Hypertension, Adult, [id number] julito - How to Take Your Blood Pressure, [id number] [facility] - Managing Your Hypertension [facility] Forms: - Medication Reconciliation Form [facility] - Antibiotic Education [facility] - Prescription Opioid Use [facility] - Patient Portal Instructions [facility] - Leadership Thank You Letter [facility] Prescriptions: - losartan-hydrochlorothiazide 50-12.5 mg Oral tablet - take 1 tablet ORAL route daily; 20 tablet; Refills: 0, Product Selection [facility] Permitted - Benadryl 25 mg Oral Capsule - take 1 capsule ORAL route every 6 hours As needed; 30 tablet; Refills: 0, [facility] Product Selection Permitted - Pepcid 20 mg Oral tablet - take 1 tablet ORAL route every 12 hours for 21 days; 42 tablet; Refills: 0, [facility] Product Selection Permitted - Toprol XL 25 mg Oral Tablet - take 1 tablet ORAL route once daily; 20 tablet; Refills: 0, Product Selection [facility] Permitted NIH Stroke Scale - NIH Stroke Score Date: 07/10/2024 Time: 21:19 Total Score = 0 10. Dysarthria (speech clarity - read or repeat words) - 0(Normal) 11. Extinction and Inattention (visual/tactile/auditory/spatial/personal) - 0(No abnormality) 1a. Level of Consciousness (LOC) - 0(Alert) 1b. Level of Consciousness (LOC) (Month \T\ Age) - 0(Both) 1c. LOC Commands (Open \T\ Closes Eyes/Network Operations Manager) - 0(Both) 2. Best Gaze (Lateral Gaze Paresis) - 0(Normal) 3. Visual Field Loss - 0(No visual loss) 4. Facial Palsy - 0(Normal) 5a. Left Arm: Motor (10-second hold) - 0(No drift) 5b. Right Arm: Motor (10-second hold) - 0(No drift) 6a. Left Leg: Motor (5-second hold - always test supine) - 0(No drift) 6b. Right Leg: Motor (5-second hold - always test supine) - 0(No drift) 7. Limb Ataxia (finger/nose \T\ heel/castillo - test with eyes open) - 0(Absent) 8. Sensory Loss (pinprick arms/legs/face) - 0(Normal) 9. Best Language: Aphasia (description/naming/reading) - 0(No aphasia) Initials: [facility] Signatures: Dispatcher [employer] EDMS Brenton Graf MD MD cha Ayala, Heidy, RN RN ha1 Caren Frazier, RN RN br2 Corrections: (The following items were deleted from the chart) 20:22 20:22 BASIC METABOLIC PANEL+C.LAB.BRZ ordered. EDMS EDMS 20:22 20:22 CBC+H.LAB.BRZ ordered. EDMS EDMS 20:22 20:22 HEPATIC FUNCTION+C.LAB.BRZ ordered. EDMS EDMS 20:22 20:22 MAGNESIUM+C.LAB.BRZ ordered. EDMS EDMS 20:22 20:22 PROBNP+C.LAB.BRZ ordered. EDMS EDMS 20:22 20:22 PROTIME (+INR)+COAG.LAB.BRZ ordered. EDMS EDMS 20:22 20:22 Troponin High Sensitivity+C.LAB.BRZ ordered. EDMS EDMS 20:22 20:22 Chest Single View+RAD.RAD.BRZ ordered. EDMS EDMS 20:22 20:22 Head Brain Wo Cont+CT.RAD.BRZ ordered. EDMS EDMS
--- NOTE | 2024-07-10 22:24 | ER ---
Nurse's Notes [facility] Name: Elizabeth Menendez Age: 44 yrs Sex: Female : 1980 Arrival Date: 07/10/2024 Time: 19:11 Bed 7 Private MD: Diagnosis: Headache;Adverse effect of unspecified drugs, medicaments and biological substances-NORVASC;Essential (primary) hypertension Presentation: 07/10 19:27 Chief complaint: EMS states: 44 YEAR OLD FEMALE CALLED DUE TO REDNESS ON THE FACE, ha1 HEADACHE, HIGH BLOOD PRESSURE, FEELING DIZZY, AND SEEING SPOTS. POSSIBLE ALLERGIC REACTION TO BLOOD PRESSURE MEDICATION AMLODIPINE. CHEST PAIN EARLY TODAY BUT NOT ANY MORE. ON OUR ARRIVAL BLOOD PRESSURE 211/116. Coronavirus screen: Client denies travel out of the [place] in the last 14 days. Ebola Screen: No symptoms or risks identified at this time. Initial Sepsis Screen: Does the patient meet any 2 criteria? No. Patient's initial sepsis screen is negative. Does the patient have a suspected source of infection? No. Patient's initial sepsis screen is negative. Risk Assessment: Do you want to hurt yourself or someone else? Patient reports no desire to harm self or others. Onset of symptoms was July 10, 2024. 19:27 Method Of Arrival: EMS: [facility] ha1 19:27 Acuity: ARANZA 2 ha1 Triage Assessment: 19:33 Headache History: Denies prior headaches. General: Appears comfortable, Behavior is ha1 calm, cooperative. Pain: Complains of pain in HEADACHE Pain does not radiate. Pain currently is 7 out of 10 on a pain scale. Quality of pain is described as aching, Pain began. Pain: Also complains of DIZZINESS. Neuro: Level of Consciousness is awake, alert, obeys commands, Oriented to person, place, time, situation. Cardiovascular: Reports chest pain, Patient's skin is warm and dry. Respiratory: Airway is patent Respiratory effort is even, unlabored, Respiratory pattern is regular, symmetrical. : No signs and/or symptoms were reported regarding the genitourinary system. Derm: Skin is red, ON THE FACE. Historical: - Allergies: 19:33 No Known Allergies; ha1 - Home Meds: 19:33 amlodipine oral [Active]; ha1 - PMHx: 19:33 Hypertensive disorder; ha1 - PSHx: 19:33 section; ha1 - Immunization history:: Adult Immunizations up to date. - Infectious Disease History:: Denies. - Social history:: Smoking status: Patient reports the use of cigarette tobacco products, smokes one-half pack cigarettes per day. - Family history:: not pertinent. Screenin:22 [facility] ED Fall Risk Assessment (Adult) History of falling in the last 3 months, ha1 including since admission No falls in past 3 months (0 pts) Confusion or Disorientation No (0 pts) Intoxicated or Sedated No (0 pts) Impaired Gait No (0 pts) Mobility Assist Device Used No (0 pt) Altered Elimination No (0 pt) Score/Fall Risk Level 0 - 2 = Low Risk Oriented to surroundings, Maintained a safe environment, Educated pt \T\ family on fall prevention, incl call for assistance when getting out of bed, Hourly rounding (assess needs \T\ fall precautionary measures) done. Abuse screen: Denies threats or abuse. Denies injuries from another. Nutritional screening: No deficits noted. Tuberculosis screening: No symptoms or risk factors identified. Assessment: 22:00 Reassessment: Patient and/or family updated on plan of care and expected duration. Pain ha1 level reassessed. Patient is alert, oriented x 3, equal unlabored respirations, skin warm/dry/pink. 23:00 Reassessment: Patient and/or family updated on plan of care and expected duration. Pain ha1 level reassessed. Patient is alert, oriented x 3, equal unlabored respirations, skin warm/dry/pink. Patient denies pain at this time. Patient states feeling better. Patient states symptoms have improved. Vital Signs: 19:27 BP 162 / 110; Pulse 72; Resp 16 S; Temp 98.2; Pulse Ox 98% on R/A; Weight 76.66 kg; ha1 Height 5 ft. 9 in. ; Pain 7/10; 20:20 BP 158 / 106; Pulse 69; Resp 17 S; Pulse Ox 99% on R/A; ha1 21:02 BP 200 / 110; Pulse 67; Resp 17 S; Pulse Ox 98% on R/A; ha1 22:07 BP 149 / 91; Pulse 72; Resp 17 S; Pulse Ox 99% on R/A; ha1 22:30 BP 139 / 100; Pulse 67; Resp 17 S; Pulse Ox 98% on R/A; ha1 23:02 BP 119 / 76; Pulse 67; Resp 17 S; Pulse Ox 98% on R/A; ha1 19:27 Body Mass Index 24.96 (76.66 kg, 175.26 cm) ha1 19:27 Pain Scale: Adult ha1 Shea Coma Score: 21:24 Eye Response: spontaneous(4). Motor Response: obeys commands(6). Verbal Response: julito oriented(5). Total: 15. NIH Stroke Scale Scores: 21:19 NIHSS Score: 0 [facility] ED Course: 19:24 Patient arrived in ED. ha1 19:24 Patient has correct armband on for positive identification. Placed in gown. Bed in low ha1 position. Call light in reach. Side rails up X 1. 19:24 Provided Education on: plan of care. Client placed on continuous cardiac and pulse ha1 oximetry monitoring. NIBP monitoring applied. traffic monitor specialist on. 19:25 Arm band placed on right wrist. EKG completed in triage. Results shown to MD. ha1 19:33 Triage completed. ha1 20:08 Inserted saline lock: 22 gauge in right antecubital area, using aseptic technique. af3 20:12 Brenton Graf MD is Attending Physician. julito 21:05 XRAY Chest (1 view) In Process Unspecified. EDMS 21:05 CT Head Brain wo Cont In Process Unspecified. EDMS 21:27 Cynthia Bell, AMARIS is Primary Nurse. ha1 22:24 Joesph Tucker MD is Referral Physician. julito 23:23 No provider procedures requiring assistance completed. IV discontinued, intact, ha1 bleeding controlled, No redness/swelling at site. Pressure dressing applied. Administered Medications: 21:05 Drug: NS 0.9% IV 1000 ml IV at 1000 ml once; to be given as a bolus over 60 minutes ha1 Route: IV; Rate: 1000 ml; Site: left antecubital; 23:27 Follow up: Response: No adverse reaction; IV Status: Completed infusion ha1 21:05 Drug: Metoprolol PO 50 mg PO once Route: PO; ha1 21:50 Follow up: Response: No adverse reaction; Blood pressure is lowered ha1 21:07 Drug: metoCLOPramide IVP 10 mg IVP once; over 1 to 2 minutes Route: IVP; Site: left ha1 antecubital; 21:50 Follow up: Response: No adverse reaction; Marked relief of symptoms ha1 21:09 Drug: Ketorolac IVP 30 mg IVP once Route: IVP; Site: left antecubital; ha1 21:50 Follow up: Response: No adverse reaction; Pain is decreased ha1 21:10 Drug: Famotidine IVP 40 mg IVP once; dilute with 10 mL 0.9% NaCl; give over 2 minutes ha1 Route: IVP; Site: left antecubital; 21:50 Follow up: Response: No adverse reaction; Marked relief of symptoms ha1 21:11 Drug: diphenhydrAMINE IVP 37.5 mg IVP once Route: IVP; Site: left antecubital; ha1 21:50 Follow up: Response: No adverse reaction; Marked relief of symptoms ha1 22:45 Drug: Losartan-Hydrochlorothiazide PO 50 mg-12.5 mg 1 tablet PO once Route: PO; ha1 23:24 Follow up: Response: No adverse reaction; Blood pressure is lowered ha1 Medication: 23:23 VIS not applicable for this client. ha1 Outcome: 22:24 Discharge ordered by . julito 23:23 Discharged to home ambulatory, ha 23:23 Condition: stable 23:23 Discharge instructions given to patient, Instructed on discharge instructions, follow up and referral plans. medication usage, Demonstrated understanding of instructions, follow-up care, medications, Prescriptions given X 3, 23:33 Patient left the ED. ha1 NIH Stroke Scale - NIH Stroke Score Date: 07/10/2024 Time: 21:19 Total Score = 0 10. Dysarthria (speech clarity - read or repeat words) - 0(Normal) 11. Extinction and Inattention (visual/tactile/auditory/spatial/personal) - 0(No abnormality) 1a. Level of Consciousness (LOC) - 0(Alert) 1b. Level of Consciousness (LOC) (Month \T\ Age) - 0(Both) 1c. LOC Commands (Open \T\ Closes Eyes/Machine Heel Builder) - 0(Both) 2. Best Gaze (Lateral Gaze Paresis) - 0(Normal) 3. Visual Field Loss - 0(No visual loss) 4. Facial Palsy - 0(Normal) 5a. Left Arm: Motor (10-second hold) - 0(No drift) 5b. Right Arm: Motor (10-second hold) - 0(No drift) 6a. Left Leg: Motor (5-second hold - always test supine) - 0(No drift) 6b. Right Leg: Motor (5-second hold - always test supine) - 0(No drift) 7. Limb Ataxia (finger/nose \T\ heel/castillo - test with eyes open) - 0(Absent) 8. Sensory Loss (pinprick arms/legs/face) - 0(Normal) 9. Best Language: Aphasia (description/naming/reading) - 0(No aphasia) Initials: julito Signatures: Dispatcher [employer] EDBrenton Chatman MD MD cha Ayala, Heidy RN RN ha1 Nancy Noel3
[2024-07-10] MEDS ORDERED: LOSARTAN POTASSIUM 50 MG TABLET ONE (22:49)
[2024-07-11 00:13] VITALS: TEMP 98.2
[2024-07-11 00:19] VITALS: O2SAT 98
[2024-07-11 00:20] VITALS: BP 119/76
--- NOTE | 2024-07-13 12:07 | EKG ---
Test Date: 2024-07-10 Test Time: 19:42:56 Sales Development Coordinator: GAVIN MEASUREMENT RESULTS: Intervals: Rate: 66 IA: 156 QRSD: 104 QT: 448 QTc: 469 [place]: P: 71 IA: 156 QRS: 89 T: 53 INTERPRETIVE STATEMENTS: Normal sinus rhythm Normal ECG Compared to ECG 07/07/2024 15:45:39 Sinus bradycardia no longer present Myocardial infarct finding no longer present Electronically Signed On 07-13-24 12:02:11 CDT by Isaiah Sparks
== END 2024-07-10 23:33 | disposition home or self-care (01) ==
LOC: ER 19:11
DX: R51.9 Headache, unspecified (principal); T46.1X5A Adverse effect of calcium-channel blockers, initial encounter; I10 Essential (primary) hypertension; F17.210 Nicotine dependence, cigarettes, uncomplicated
CPT/HCPCS: 96361; 93005; 85025; 80048; 36415; 83735; 80076; 84484; 83880; 70450; 71045; 96375; 96374; 99285; J2765; J1200; J7030